=== PATIENT | female | born 1990 ===

== ENCOUNTER 2022-09-18 09:24 | Inpatient (IN) | payer OTHER ==
[2022-09-18] MEDS ORDERED: Methylergonovine 0.2 MG/1 ML Amp IM PRN (10:21)
[2022-09-18] MEDS ORDERED: Butorphanol 1 MG/ML SDV IVPUSH PRN (10:21)
[2022-09-18] MEDS ORDERED: Sodium Chloride 0.9% 2.5 ML Syringe FLUSH PRN (10:21)
[2022-09-18] MEDS ORDERED: Misoprostol 200 MCG Tab PO PRN (10:21)
[2022-09-18] MEDS ORDERED: Water For Irrigation,Sterile 1,000 ML Container IRR PRN (10:21)
[2022-09-18] MEDS ORDERED: Lidocaine 1% 50 ML MDV INJECT PRN (10:21)
[2022-09-18] MEDS ORDERED: Sodium Chloride 0.9% 10 ML Syringe FLUSH PRN (10:21)
[2022-09-18] MEDS ORDERED: Sodium Chloride 0.9% 20 ML SDV IV PRN (10:21)
[2022-09-18] MEDS ORDERED: Tranexamic Acid 1,000 MG in Sodium Chloride 0.9% 100 ML IV PRN (10:21)
[2022-09-18] MEDS ORDERED: Carboprost Tromethamine 250 MCG/1 ML Amp IM PRN (10:21)
[2022-09-18] MEDS ORDERED: Oxytocin/0.9 % Sodium Chloride 30 UNIT/500 ML BAG IV SCH (10:30)
[2022-09-18] MEDS ORDERED: ePHEDrine 50 MG/ML SDV IVPUSH PRN ×2 (12:01)
[2022-09-18] MEDS ORDERED: Ropivacaine HCl/PF 400 MG in Premix Bag 1 BAG EPIDUR SCH (12:15)
[2022-09-18] MEDS ORDERED: Phenylephrine HCl In 0.9% NaCl 1 MG/10 ML Vial IVPUSH SCH (12:15)
[2022-09-18 13:59] LABS: CARBON DIOXIDE,CO2 20.3 mmol/L (21.0-32.0); POTASSIUM,K 4.2 mmol/L (3.5-5.1)
[2022-09-18] MEDS: Lactated Ringers 1,000 ML IV SCH ×2 (21:02→22:05)
[2022-09-18] MEDS ORDERED: Lidocaine 2% with EPINEPHrine 1:200,000 20 ML SDV ONE (21:15)
[2022-09-18] MEDS ORDERED: Phenylephrine HCl In 0.9% NaCl 1 MG/10 ML Vial ONE (21:15)
[2022-09-18] MEDS ORDERED: Ondansetron 4 MG/2 ML SDV IVPUSH PRN (22:23)
[2022-09-19] MEDS: Lactated Ringers 1,000 ML IV SCH ×3 (05:04→15:26)
[2022-09-19] MEDS ORDERED: Ropivacaine 0.5% 5 MG/ML 30 ML SDV ONE (10:15)
[2022-09-19] MEDS ORDERED: Bupivacaine 0.5% 10 ML SDV ONE (10:15)
[2022-09-19] MEDS ORDERED: Oxytocin 10 Units/1 ML SDV ONE (12:36)
[2022-09-19] MEDS ORDERED: Ondansetron 4 MG/2 ML SDV ONE (12:36)
[2022-09-19] MEDS ORDERED: ceFAZolin 1 GM Vial ONE (12:36)
[2022-09-19] MEDS ORDERED: Phenylephrine 1% 10 MG/ML SDV ONE (12:36)
[2022-09-19] MEDS ORDERED: Dexamethasone 4 MG/ML 5 ML MDV ONE (12:37)
[2022-09-19] MEDS ORDERED: Azithromycin 500 MG in Sodium Chloride 0.9% 250 ML IV ONE (12:37)
[2022-09-19] MEDS ORDERED: Morphine PF 10 MG/10 ML SDV ONE (12:39)
[2022-09-19] MEDS ORDERED: fentaNYL 100 MCG/2 ML SDV ONE (13:07)
[2022-09-19] MEDS ORDERED: Midazolam 1 MG/ML 2 ML SDV ONE (13:08)
[2022-09-19] MEDS ORDERED: Lidocaine 2% 5 ML SDV ONE (13:09)
[2022-09-19] MEDS ORDERED: Ketorolac 30 MG/ML SDV ONE (13:22)
[2022-09-19] MEDS ORDERED: Naloxone 0.4 MG/ML SDV IVPUSH PRN (14:01)
[2022-09-19] MEDS ORDERED: Albuterol 0.083% 2.5 MG/3 ML Neb Soln NEB PRN (14:01)
[2022-09-19] MEDS ORDERED: fentaNYL 50 MCG/ML SDV IVPUSH PRN (14:01)
[2022-09-19] MEDS ORDERED: ePHEDrine 50 MG/ML SDV IVPUSH PRN (14:01)
[2022-09-19] MEDS ORDERED: Ondansetron 4 MG/2 ML SDV IVPUSH PRN ×2 (14:01→14:10)
[2022-09-19] MEDS ORDERED: Metoclopramide 10 MG/2 ML SDV IVPUSH PRN (14:01)
[2022-09-19] MEDS ORDERED: HYDROmorphone 1 MG/ML Syringe IVPUSH PRN (14:01)
[2022-09-19] MEDS ORDERED: Morphine 2 MG/ML SYRINGE IVPUSH PRN (14:01)
[2022-09-19] MEDS ORDERED: Oxytocin 10 Units/1 ML SDV IM PRN (14:10)
[2022-09-19] MEDS ORDERED: Acetaminophen/oxyCODONE 325-5 MG Tab PO PRN (14:10)
[2022-09-19] MEDS ORDERED: Tranexamic Acid 1,000 MG in Sodium Chloride 0.9% 100 ML IV PRN (14:10)
[2022-09-19] MEDS ORDERED: Misoprostol 200 MCG Tab RECTAL PRN (14:10)
[2022-09-19] MEDS ORDERED: Bisacodyl 10 MG Supp RECTAL PRN (14:10)
[2022-09-19] MEDS ORDERED: Methylergonovine 0.2 MG/1 ML Amp IM PRN (14:10)
[2022-09-19] MEDS ORDERED: diphenhydrAMINE 50 MG/ML SDV IVPUSH PRN (14:10)
[2022-09-19] MEDS ORDERED: Lanolin 100% Cream 7 GM Tube TOP PRN (14:10)
[2022-09-19] MEDS ORDERED: Phenylephrine HCl In 0.9% NaCl 1 MG/10 ML Vial IVPUSH SCH (14:15)
[2022-09-19] MEDS ORDERED: Oxytocin/0.9 % Sodium Chloride 30 UNIT/500 ML BAG IV SCH (14:15)
[2022-09-19] MEDS ORDERED: Acetaminophen 1,000 MG in Premix Bag 1 BAG IV PRN (18:00)
[2022-09-19] MEDS: Docusate Sodium 100 MG Cap PO SCH (20:52)
[2022-09-19] MEDS: Ketorolac 30 MG/ML SDV IVPUSH SCH (20:53)
[2022-09-20] MEDS: Ketorolac 30 MG/ML SDV IVPUSH SCH ×3 (02:13→14:23)
[2022-09-20] MEDS: Acetaminophen/oxyCODONE 325-5 MG Tab PO PRN ×2 (05:39→19:45)
[2022-09-20] MEDS: Docusate Sodium 100 MG Cap PO SCH ×2 (08:05→20:30)
[2022-09-20] MEDS: Enoxaparin 40 MG/0.4 ML Syringe SUBCUT SCH (11:43)
[2022-09-20] MEDS: Ibuprofen 800 MG Tab PO PRN (19:44)
[2022-09-21] MEDS: Ibuprofen 800 MG Tab PO PRN ×2 (04:07→13:23)
[2022-09-21] MEDS: Acetaminophen 500 MG Tab PO PRN ×2 (04:07→19:05)
[2022-09-21 04:47] LABS: CARBON DIOXIDE,CO2 22.5 mmol/L (21.0-32.0); POTASSIUM,K 3.7 mmol/L (3.5-5.1)
[2022-09-21] MEDS ORDERED: Lactated Ringers 1,000 ML IV ONE (05:14)
[2022-09-21] MEDS: Docusate Sodium 100 MG Cap PO SCH ×2 (10:00→22:06)
[2022-09-21] MEDS: Acetaminophen/oxyCODONE 325-5 MG Tab PO PRN ×2 (11:22→22:05)
[2022-09-21] MEDS: Enoxaparin 40 MG/0.4 ML Syringe SUBCUT SCH (11:24)
[2022-09-21] MEDS: Lactated Ringers 1,000 ML IV SCH (14:31)
[2022-09-21] MEDS: cefTRIAXone 2 GM in Premix Bag 1 BAG IV SCH (22:00)
[2022-09-21] MEDS: Clindamycin Phosphate in D5W 900 MG in Premix Bag 1 BAG IV SCH ×2 (23:00)
[2022-09-22] MEDS: Ibuprofen 800 MG Tab PO PRN ×2 (02:23→15:21)
[2022-09-22] MEDS: Clindamycin Phosphate in D5W 900 MG in Premix Bag 1 BAG IV SCH ×6 (05:46→22:33)
[2022-09-22] MEDS: Docusate Sodium 100 MG Cap PO SCH ×2 (09:44→21:11)
[2022-09-22] MEDS: Acetaminophen 500 MG Tab PO PRN (11:00)
[2022-09-22] MEDS: Enoxaparin 40 MG/0.4 ML Syringe SUBCUT SCH (11:52)
[2022-09-22] MEDS ORDERED: Iopamidol 755 MG/ML 500 ML Multipack Bottle IVPUSH ONE (13:19)
[2022-09-22] MEDS: cefTRIAXone 2 GM in Premix Bag 1 BAG IV SCH (21:11)
[2022-09-23] MEDS: Clindamycin Phosphate in D5W 900 MG in Premix Bag 1 BAG IV SCH ×2 (06:19)
[2022-09-23] MEDS: Ibuprofen 800 MG Tab PO PRN (06:34)
[2022-09-23] MEDS ORDERED: Levothyroxine 50 MCG Tab PO SCH (07:30)
[2022-09-23] MEDS: Docusate Sodium 100 MG Cap PO SCH (08:38)
[2022-09-23] MEDS ORDERED: buPROPion 150 MG Tab.SR PO SCH (09:00)
== END 2022-09-23 11:20 | disposition home or self-care (01) | DRG 786 ==
LOC: MW.OBCHECK 09:24 → MW.OB 09:31 → MW.OBCHECK 14:50 → MW.OB 14:50 → OBSVTOIN 09-19 14:10 → MW.OB 09-19 16:04
PROVIDERS: ADMIT Obstetrics & Gynecology; ATTEND Obstetrics & Gynecology
PROC: 10D00Z1 Extraction of Products of Conception, Low, Open Approach (ICD-10-PCS; principal; 2022-09-19)
PROC: 3E0R3BZ Introduction of Anesthetic Agent into Spinal Canal, Percutaneous Approach (ICD-10-PCS; 2022-09-19)
DX: O48.0 Post-term pregnancy (principal); O75.3 Other infection during labor; Z37.0 Single live birth; O34.211 Maternal care for low transverse scar from previous cesarean delivery; Z20.822 Contact with and (suspected) exposure to COVID-19; Z3A.40 40 weeks gestation of pregnancy; Z86.16 Personal history of COVID-19; Z86.718 Personal history of other venous thrombosis and embolism; Z79.01 Long term (current) use of anticoagulants; Z88.0 Allergy status to penicillin; Z88.2 Allergy status to sulfonamides
CPT/HCPCS: 36415; 51702; 59025; 71046; 71046-26; 74177; 74177-26; 80053; 81003; 82570; 82803; 83605; 84156; 84550; 85014; 85018; 85025; 85027; 85379; 86592; 86850; 86900; 86901; 87040; A9270-GY; J0131; J0456; J0595; J0690; J0696; J1100; J1650; J1790; J1885; J2250; J2274; J2370; J2405; J2590; J2795; J3010; J3490; J7050; J7120; Q9967; U0002